=== PATIENT | male | born 1950 | race Caucasian/White ===

== ENCOUNTER 2016-02-14 07:33 | Observation (INO) | payer MEDICARE ==
--- NOTE | 2016-02-14 07:47 | ERPHSYRPT ---
- History of Present Illness Time Seen by Provider: 02/14/16 07:42 Source: EMS Exam Limitations: no limitations Physician History: The patient is a 65-year-old male brought in by ambulance from his home where his witnessed 3 seizures that began at 4:30 in the morning or about 3 hours ago. He was incontinent of urine. He denies injury to the tongue or mouth. The patient does not remember anything area with EMS arrived at the scene, the patient was post ictal. The patient is now feeling much better and responds to questions appropriately. The patient does not drink alcohol. The patient has never had a head injury. At least a year ago the patient had a series of seizures but evaluation by a neurologist did not identify the cause. The patient was not placed on antiseizure medicines at this time. His past medical history significant only for high blood pressure. Timing/Duration: today Severity: severe Character of Deficits: other (seizure) Deficits: cannot stand, cannot walk, unable to stand, unable to sit Baseline/Normal Cognition: alert oriented x 3 Current Cognition: alert oriented x 3 Baseline Gait: walks w/o assistance Associated Symptoms: loss of consciousness, headache Allergies/Adverse Reactions: No Known Drug Allergies Allergy (Verified 02/14/16 07:43) Home Medications: Alprazolam 0.25 mg [xanAX 0.25 MG] 0.25 mg PO HS 02/14/16 [History] Amlodipine Besylate [Norvasc] 2.5 mg PO DAILY 02/14/16 [History] Levothyroxine Sodium [Synthroid] 100 mcg PO DAILY 02/14/16 [History] Losartan Potassium [Cozaar] 25 mg PO DAILY 02/14/16 [History] Hx Tetanus, Diphtheria Vaccination/Date Given: No (PT UNSURE) Hx Influenza Vaccination/Date Given: No Hx Pneumococcal Vaccination/Date Given: No - Review of Systems Constitutional: No Fever, No Chills Eyes: No Symptoms Ears, Nose, & Throat: No Symptoms Respiratory: No Cough, No Dyspnea Cardiac: No Chest Pain, No Edema, No Syncope Abdominal/Gastrointestinal: No Abdominal Pain, No Nausea, No Vomiting, No Diarrhea Genitourinary Symptoms: No Dysuria Musculoskeletal: No Back Pain, No Neck Pain Skin: No Rash Neurological: Headache Psychological: No Symptoms Endocrine: No Symptoms Hematologic/Lymphatic: No Symptoms Immunological/Allergic: No Symptoms All Other Systems: Reviewed and Negative - Past Medical History Pertinent Past Medical History: Yes Neurological History: No Pertinent History ENT History: No Pertinent History Cardiac History: High Cholesterol, Hypertension Respiratory History: Pneumonia Endocrine Medical History: No Pertinent History Musculoskeletal History: Arthritis GI Medical History: Hernia History: No Pertinent History Psycho-Social History: No Pertinent History Male Reproductive Disorders: No Pertinent History - Past Surgical History Past Surgical History: Yes Neuro Surgical History: No Pertinent History Cardiac: No Pertinent History Respiratory: No Pertinent History Gastrointestinal: No Pertinent History Genitourinary: No Pertinent History Musculoskeletal: No Pertinent History Male Surgical History: No Pertinent History Other Surgical History: T&A - Social History Smoking Status: Former smoker How long have you smoked: 5 years Exposure to second hand smoke: No Drug Use: none Patient Lives Alone: No - Nursing Vital Signs Nursing Vital Signs: Initial Vital Signs Temperature 99.3 F Pulse Rate 86 Respiratory Rate 22 Blood Pressure 121/71 Pain Intensity 3 - [place] Coma Scale Best Eye Response (Benjamin): (4) open spontaneously Best Verbal Response (Benjamin): (5) oriented Best Motor Response (Benjamin): (6) obeys commands Benjamin Total: 15 - Physical Exam General Appearance: no apparent distress, alert Eye Exam: bilateral eye: normal inspection, PERRL, EOMI Ears, Nose, Throat Exam: normal ENT inspection, moist mucous membranes Neck Exam: normal inspection, non-tender, supple Respiratory: normal breath sounds, lungs clear, airway intact, No respiratory distress Cardiovascular: regular rate/rhythm, No edema Gastrointestinal: soft, No tenderness, No distention Rectal Exam: not done Back Exam: normal inspection Extremity Exam: normal inspection, No pedal edema Mental Status: alert, oriented x 3 gore inserter Exam: tongue midline Coordination/Gait: normal finger to nose, normal gait Skin Exam: normal color, warm, dry, No rash SpO2 Interpretation: normal Oxygen Delivery: Room Air - Course EKG Interpreted by Me: Sinus Tach, NORMAL AXIS, NORMAL INTERVALS, NORMAL QRS, NORMAL ST-T, Other (No change comp to EKG 09/08/15.) - CT Exams Head CT Interpretation: Tele-radiologist Report, Other (no acute) Ordered Tests: Active Orders 24 hr Category Date Time Status Security System Technician STAT Care 02/14/16 07:58 Active EKG-ER Only STAT Care 02/14/16 07:53 Active IV Insertion STAT Care 02/14/16 07:53 Active HEAD WITHOUT CONTRAST [CT] Stat Exams 02/14/16 07:54 Completed CBC W DIFF Stat Lab 02/14/16 08:00 Completed CMP Stat Lab 02/14/16 08:00 Completed UA W/ MICROSCOPIC Stat Lab 02/14/16 11:34 Completed Medication Summary Discontinued Medications Generic Name Dose Route Start Last Admin Trade Name Don PRN Reason Stop Dose Admin Sodium Chloride 1,000 mls @ 999 mls/hr 02/14/16 07:53 02/14/16 08:05 Sodium Chloride 0.9% 1000 Ml IV 02/14/16 08:53 999 mls/hr .Q1H1M STA Administration Sodium Chloride Confirm 02/14/16 08:00 Sodium Chloride 0.9% 1000 Ml Administered 02/14/16 08:01 Dose 1,000 mls @ ud .ROUTE .STK-MED ONE Ketorolac Tromethamine 30 mg 02/14/16 07:55 02/14/16 08:05 Toradol 30 Mg Injection IV 02/14/16 07:56 30 mg STAT ONE Administration Ketorolac Tromethamine Confirm 02/14/16 08:00 Toradol 30 Mg Injection Administered 02/14/16 08:01 Dose 30 mg .ROUTE .STK-MED ONE Lab/Rad Data: Laboratory Result Diagrams 02/14/16 08:00 02/14/16 08:00 Laboratory Results 02/14/16 02/14/16 02/14/16 Range/Units 11:34 08:00 08:00 WBC 10.9 H (4.0-10.5) K/mm3 RBC 5.09 (4.1-5.6) M/mm3 Hgb 15.6 (12.5-18.0) gm/dl Hct 47.8 (42-50) % MCV 93.9 (78-100) fl MCH 30.6 (26-32) pg MCHC 32.6 (32-36) g/dl RDW 13.9 (11.5-14.0) % Plt Count 317 (150-450) K/mm3 MPV 10.3 H (6-9.5) fl Gran % 66.4 H (36.0-66.0) % Lymphocytes % 21.2 L (24.0-44.0) % Monocytes % 10.8 (0.0-12.0) % Eosinophils % 1.2 (0.00-5.0) % Basophils % 0.4 (0.0-0.4) % Basophils # 0.04 (0-0.4) Sodium 139 (136-145) mEq/L Potassium 4.8 (3.5-5.1) mEq/L Chloride 105 (98-107) mEq/L Carbon Dioxide 23.6 (21-32) mEq/L Anion Gap 15.4 H (5-15) MEQ/L BUN 11 (9-20) mg/dL Creatinine 1.62 H (0.55-1.30) mg/dl Estimated GFR 45 ML/MIN Glucose 111 H (70-110) MG/DL Calcium 8.6 (8.5-10.1) mg/dL Total Bilirubin 0.2 (0.2-1.0) mg/dL AST 26 (15-37) U/L ALT 26 (12-78) U/L Alkaline Phosphatase 79 (46-116) U/L Serum Total Protein 7.1 (6.4-8.2) gm/dL Albumin 3.8 (3.4-5.0) g/dL Ur Collection Type CLEAN CATCH Urine Color RED (YELLOW) Urine Appearance CLOUDY (CLEAR) Urine pH 5.5 (5-6) Ur Specific [place] >=1.030 (1.005-1.025) Urine Protein 100 (Negative) Urine Glucose (UA) NEGATIVE (NEGATIVE) mg/dL Urine Ketones NEGATIVE (NEGATIVE) Urine Nitrite NEGATIVE (NEGATIVE) Urine Bilirubin NEGATIVE (NEGATIVE) Urine Urobilinogen 0.2 (0-1) mg/dL Urine WBC (Auto) NEGATIVE (NEGATIVE) Urine RBC (Auto) LARGE (0-5) José Luis/ul Urine Microscopic RBC >100 (0-2) /HPF Urine Bacteria FEW (NEGATIVE) /HPF Specimen Received 0103 0230 - Progress Progress: improved Progress Note: 02/14/16 07:56 Upon entry to ER pt is now alert and oriented and back to baseline. 02/14/16 12:[address] Vázquez at [facility] who recommends observation and Keppra 1500 mg IV loading dose. F/u later. Dr Peralta agrees. Discussed with .: Fabian Will see patient in: hospital (observation) Counseled pt/family regarding: lab results, diagnosis, rad results - Departure Time of Disposition: 12:04 Departure Disposition: Observation (per Dr Peralta) Clinical Impression: Seizure Condition: Stable Critical Care Time: No
[2016-02-14] MEDS ORDERED: Sodium Chloride 0.9% 1000 ML 1,000 ML IV STA (07:53)
[2016-02-14] MEDS ORDERED: TORAdol 30 mg Injection IV ONE (07:55)
[2016-02-14] MEDS ORDERED: Sodium Chloride 0.9% 1000 ML 1,000 ML ONE (08:00)
[2016-02-14] MEDS ORDERED: TORAdol 30 mg Injection ONE (08:00)
[2016-02-14 08:19] LABS: BASOPHIL % 0.4 % (0.0-0.4); Eosinophil % 1.2 % (0.00-5.0); Granulocytes % 66.4 % (36.0-66.0); Lymphocytes % 21.2 % (24.0-44.0); Mean Cell Volume 93.9 fl (78-100); Mean Corpuscular Hemoglobin 30.6 pg (26-32); Mean Platelet Volume 10.3 fl (6-9.5); Monocytes % 10.8 % (0.0-12.0); Platelet Count 317 K/mm3 (150-450); Red Blood Count 5.09 M/mm3 (4.1-5.6); Red Cell Distribution Width 13.9 % (11.5-14.0); White Blood Count 10.9 K/mm3 (4.0-10.5)
--- NOTE | 2016-02-14 08:39 | XRAY ---
Indication: Seizures. Multiple contiguous axial images obtained through the head without contrast. Comparison: May 21, 2013 Stable age-appropriate global atrophy. No acute intracranial hemorrhage, abnormal extra-axial fluid collection, or mass effect. Fourth ventricle is midline without hydrocephalus. Mascorro-white matter differentiation maintained. Bony calvarium intact. Visualized paranasal sinuses and mastoid air cells are pneumatized and clear. Impression: Again no acute intracranial abnormalities. CTDI 60.80
[2016-02-14 09:06] LABS: ALBUMIN 3.8 g/dL (3.4-5.0); ANION GAP 15.4 MEQ/L (5-15); BILIRUBIN,TOTAL 0.2 mg/dL (0.2-1.0); Carbon Dioxide 23.6 mEq/L (21-32); Potassium 4.8 mEq/L (3.5-5.1); Total Protein 7.1 gm/dL (6.4-8.2)
[2016-02-14 11:43] LABS: Collection Type CLEAN CATCH
[2016-02-14 11:44] LABS: COMPLETE URINE MICROSCOPIC? YES; Ph 5.5 (5-6)
[2016-02-14 11:50] LABS: Bacteria FEW /HPF (NEGATIVE)
[2016-02-14] MEDS ORDERED: Keppra 500 MG/5 ML*** 1,500 MG in D5w 100ML Mini Bag 100 ML 100 ML IV ONE (12:04)
[2016-02-14] MEDS ORDERED: Ativan 2 MG/1 ML VIAL IV PRN (17:55)
[2016-02-14] MEDS ORDERED: TYLENOL 325 MG PO PRN (17:55)
[2016-02-14] MEDS ORDERED: Keppra 500 MG/5 ML*** 1,000 MG in D5w 100ML Mini Bag 100 ML 100 ML IV SCH (21:00)
[2016-02-14] MEDS ORDERED: xanAX 0.25 MG PO SCH (22:00)
[2016-02-14] MEDS ORDERED: NORVASC 5 MG PO SCH (22:00)
[2016-02-15 06:11] LABS: BASOPHIL % 0.5 % (0.0-0.4); Eosinophil % 1.2 % (0.00-5.0); Lymphocytes % 18.6 % (24.0-44.0); Mean Cell Volume 92.7 fl (78-100); Mean Corpuscular Hemoglobin 30.9 pg (26-32); Mean Platelet Volume 9.7 fl (6-9.5); Monocytes % 13.7 % (0.0-12.0); Platelet Count 207 K/mm3 (150-450); Red Blood Count 4.24 M/mm3 (4.1-5.6); Red Cell Distribution Width 13.6 % (11.5-14.0); White Blood Count 6.5 K/mm3 (4.0-10.5)
[2016-02-15 06:28] LABS: ANION GAP 12.2 MEQ/L (5-15); BLOOD UREA NITROGEN 11 mg/dL (9-20); CHLORIDE 108 mEq/L (98-107); Carbon Dioxide 24.8 mEq/L (21-32); Glucose 95 MG/DL (70-110); Potassium 3.9 mEq/L (3.5-5.1); SODIUM 141 mEq/L (136-145)
[2016-02-15 08:10] VITALS: BP 95/56; PULSE 80; O2SAT 95
--- NOTE | 2016-02-15 08:59 | PCM.DCORD ---
- Discharge Discharge Date: 02/15/16 Disposition: Home, Self-Care Condition: Good Prescriptions: Levetiracetam [Keppra 500 mg ] 500 mg PO TID #90 tablet Medications: Home Medications Alprazolam 0.25 mg [xanAX 0.25 MG] 0.25 mg PO HS 02/14/16 [Confirmed 02/13] Amlodipine Besylate [Norvasc] 2.5 mg PO HS 02/14/16 [Confirmed 02/14/16] Levothyroxine Sodium [Synthroid] 100 mcg PO DAILY 02/14/16 [Confirmed 02/14/16] Losartan Potassium [Cozaar] 25 mg PO DAILY 02/14/16 [Confirmed 02/14/16] Active Inpatient Medications Acetaminophen (Tylenol 325 Mg) 650 mg PO Q4H PRN PRN PRN Reason: PAIN AND/OR FEVER Stop: 03/15/16 17:54 Alprazolam (Xanax 0.25 Mg) 0.25 mg PO HS [facility] Stop: 03/15/16 21:59 Last Admin: 02/14/16 21:49 Dose: 0.25 mg Amlodipine Besylate (Norvasc 5 Mg) 2.5 mg PO HS [facility] Stop: 03/15/16 21:59 Last Admin: 02/14/16 21:48 Dose: 2.5 mg Levetiracetam (Keppra 500 Mg ) 500 mg PO TID [facility] Stop: 03/16/16 09:59 Levothyroxine Sodium (Synthroid 100 Mcg) 100 mcg PO QAM [facility] Stop: 03/16/16 09:59 Lorazepam (Ativan 2 Mg/1 Ml Vial) 1 mg IV Q2H PRN PRN PRN Reason: SEIZURES Stop: 03/15/16 17:54 Losartan Potassium (Cozaar 50 Mg) 25 mg PO DAILY [facility] Stop: 03/16/16 09:59 Follow up with: CRIS BRAVO [Primary Care Provider] - JULIA FLETCHER [NON-STAFF PHY W/O PRIVILEGES] - 1 Week
[2016-02-15] MEDS ORDERED: Cozaar 50 MG PO SCH (10:00)
[2016-02-15] MEDS ORDERED: SYNTHROID 100 MCG PO SCH (10:00)
[2016-02-15] MEDS ORDERED: KEPPRA 500 MG PO SCH (10:00)
--- NOTE | 2016-02-16 09:52 | HP ---
HISTORY OF PRESENT ILLNESS: This is a 65 year-old patient of mine who presented to the emergency department by EMS after his reported that he had three seizures. The first one was at 4:30. She reports it lasted 3 to 4 minutes and then he would have deep loud snoring and be limp but have his eyes open and continued with this for about 30 minutes and then have another seizure. He had a total of three. She reports his arms would jerk and he would be confused afterwards. She feels like he was confused for longer this time. The patient reports that nothing was different about last night. He denies any alcohol use. He denies being fatigued. He has a history of seizures and was on Keppra 500 mg p.o. b.i.d. in the past. He reports that a year ago Dr. Vázquez told him to stop taking the medication and he has not had any seizures until now. REVIEW OF SYSTEMS: He denies any fever. He has had some cough and head congestion, sinus problems that started last night. No chest pain. No dyspnea. He continued to have some headache. PAST MEDICAL HISTORY: Hypertension, hypothyroidism, hard of hearing, history of double pneumonia when he was in the [employer] in 1968, gastroesophageal reflux disease, seizure disorder. PAST SURGICAL HISTORY: He had eye surgery, tonsillectomy. MEDICATIONS: Alprazolam 0.25 mg p.o. q.h.s., amlodipine 2.5 mg p.o. q.h.s., levothyroxine 100 mcg p.o. daily, losartan 25 mg p.o. daily. ALLERGIES: NKDA. SOCIAL HISTORY: He is and lives with his . He used to smoke but quit over 40 years ago. He denies any alcohol use. FAMILY HISTORY: Noncontributory. PHYSICAL EXAMINATION: VITAL SIGNS: Temperature current 99.2F, temperature max 99.3F, heart rate 89 to 124 currently 90, respiratory rate 14 to 22, blood pressure 112 to 127 over 61 to 71, weight 82.5 kg. Oxygen saturation 98% on 2 liters. GENERAL: The patient is sitting up in bed a pleasant talkative man in no acute distress. His is at the bedside. NEURO: Cranial nerves II-XII intact. Strength is 5/5 in all four extremities. Normal finger to nose. CVS: His heart has a regular rate and rhythm. No murmurs, gallops or rubs are appreciated. CHEST: Clear to auscultation bilaterally. No crackles or wheezes. ABDOMEN: Soft, nontender, nondistended with normal bowel sounds. EXTREMITIES: No clubbing, cyanosis or edema. SKIN: Warm, dry and intact. LABORATORY DATA AND TESTS: His white blood cell count was 10,900. Creatinine 1.62, glucose 111. UA greater than 100 red blood cells. The emergency room reported that he had trouble trying to place the [place] and were unable to do due to the enlarged prostate. He had a head CT that was read as no acute intracranial abnormalities. Sinuses were read as being clear. ASSESSMENT AND PLAN: 1) Seizures. He has been restarted on his Keppra and is being given IV and is being started on Keppra 500 mg p.o. t.i.d., will continue with observation overnight, add acetaminophen as needed for his headache and Ativan as needed for seizure that lasts longer than 8 minutes. 2) Hypertension, continue with his home antihypertensive. 3) History of hypothyroidism, continue with his home dose of levothyroxine.
--- NOTE | 2016-02-17 11:49 | DS ---
DISCHARGE DIAGNOSES: 1) SEIZURE WITH HISTORY OF SEIZURE DISORDER. 2) HYPERTENSION. 3) HYPOTHYROIDISM. 4) BENIGN PROSTATIC HYPERTROPHY. DISCHARGE PHYSICAL EXAMINATION: VITALS: Temperature current 98.6F, temperature max 99.5F, heart rate 70 to 82, respiratory rate 16 to 20, blood pressure 90 to 113 over 56 to 54. Oxygen saturation 95 to 97% on room air. GENERAL: The patient is pleasant talkative man sitting up in bed in no acute distress. CVS: He has a regular rate and rhythm. No murmurs, gallops or rubs are appreciated. CHEST: Clear to auscultation bilaterally. No crackles or wheezes. ABDOMEN: Soft, nontender, nondistended with normal bowel sounds. EXTREMITIES: Strength 5/5 in all four extremities. Cranial nerves II-XII intact. SKIN: Warm, dry and intact. HOSPITAL COURSE: 1) Seizure with history of seizure disorder. He was loaded with Keppra and is going to be discharged on Keppra 500 mg p.o. t.i.d. He had teleneurology consult and they agreed with the management. He had a head CT which did not show any concerns. Will have him follow up with his neurologist, Dr. Jorden Vázquez, as an outpatient. 2) Hypertension. His blood pressure was well controlled during his hospital stay. 3) Hypothyroidism. Levothyroxine was continued during his hospital stay. 4) Benign prostatic hypertrophy. They had trouble trying to place a [place] in the emergency room. Will check PSA and work this up as an outpatient. FOLLOW UP: He is to follow up with myself in one to two weeks and his neurologist, Dr. Jorden Vázquez, in one to two weeks. He can resume all of his home medications and in addition Keppra 500 mg p.o. t.i.d. which he will be on for lifetime. DISPOSITION: The patient was discharged home in fair condition.
== END 2016-02-15 10:30 | disposition home or self-care (01) ==
LOC: ED 07:33 → MED SURG 12:24
PROVIDERS: ADMIT Internal Medicine; ATTEND Internal Medicine
DX: G40.909 Epilepsy, unspecified, not intractable, without status epilepticus (principal); I10 Essential (primary) hypertension; E03.9 Hypothyroidism, unspecified; N40.0 Benign prostatic hyperplasia without lower urinary tract symptoms; K21.9 Gastro-esophageal reflux disease without esophagitis; Z79.899 Other long term (current) drug therapy
CPT/HCPCS: 93268 ×2; 93041; 96374; 96365; 99284; 96360; 93005; 81000; 36415 ×2; 85025 ×2; 80048; 80053; 70450; G0103; 96361; G0378; J1885; J1953

== ENCOUNTER 2020-08-05 05:47 | Day surgery (SDC) | payer MEDICARE ==
[2020-08-05] MEDS ORDERED: Lactated Ringers 1,000 ML IV SCH (06:30)
[2020-08-05] MEDS ORDERED: DIPRIVAN 200 MG/20 ML IV ONE (07:46)
[2020-08-05 09:13] VITALS: BP 131/83; PULSE 70; O2SAT 96
--- NOTE | 2020-08-05 13:36 | OP ---
SURGERY DATE/TIME: 08/05/2020 0751 PREOPERATIVE DIAGNOSIS: Screening exam. POSTOPERATIVE DIAGNOSIS: Diverticulosis otherwise normal colon. PROCEDURE: Colonoscopy. SURGEON: Dr. Camacho. ANESTHESIA: MAC. Medications given by anesthesia department. HISTORY: The patient is a 69 year-old white male patient who presents now for screening colonoscopy. He reports it has been over ten years since his last examination. The patient was appraised of the risks of the procedure including the risk of perforation, phlebitis, untoward reaction to medication, bleeding and missed lesions. The patient verbalized his understanding and desired to have the procedure performed. DESCRIPTION OF PROCEDURE: The patient was given the medications by the anesthesia department. He had continuous pulse oximetry, ECG monitoring, intermittent blood pressure monitoring and tidal CO2 monitoring during the examination. He was placed in the left lateral decubitus position. A digital rectal examination was performed and revealed normal anal sphincter tone, no masses and normal prostate. The flexible Olympus pediatric colonoscope was used to intubate the rectum. A view of the colon was developed sequentially to the cecum. Upon insertion and withdrawal, including a retroflex view in the rectum was noted scattered diverticula. The scope was removed from the patient who tolerated the procedure well and was sent back to OP recovery in good condition. The prep was noted to be poor.
== END 2020-08-05 09:15 | disposition home or self-care (01) ==
LOC: SDC 05:47
PROVIDERS: ATTEND Family Medicine
DX: Z12.11 Encounter for screening for malignant neoplasm of colon (principal); K57.30 Diverticulosis of large intestine without perforation or abscess without bleeding
CPT/HCPCS: 99100; J2704